=== PATIENT | female | born 1975 | race Caucasian/White ===

== ENCOUNTER → 2016-04-14 | Outpatient (CLI) | payer OTHER ==
--- NOTE | 2016-04-14 13:50 | DX ---
Chest, PA and Lateral History: Worsening cough Comparison: None Findings: There is a pectus excavatum deformity. Lungs are clear, without infiltrate or consolidation . Heart size is normal. There is no adenopathy or mass lesion. There is no pleural effusion. Bones ar e unremarkable for age. Impression: No pneumonia.
== END ==
LOC: FIMAGING 13:28
PROVIDERS: ATTEND Family Medicine
DX: R05 Cough (principal)

== ENCOUNTER → 2016-05-17 | Outpatient (CLI) | payer OTHER | LOC: BMCIMAGING 09:28 | PROVIDERS: ATTEND Internal Medicine Endocrinology, Diabetes & Metabolism | DX: E04.2 Nontoxic multinodular goiter (principal) | CPT/HCPCS: 76536-PO ==

== ENCOUNTER → 2017-12-07 | Outpatient (CLI) | payer OTHER | LOC: FIMAGING 08:49 | PROVIDERS: ATTEND Family Medicine | DX: Z12.31 Encounter for screening mammogram for malignant neoplasm of breast (principal) ==

== ENCOUNTER → 2018-01-08 | Outpatient (CLI) | payer OTHER | LOC: BMCIMAGING 08:51 | PROVIDERS: ATTEND Family Medicine | DX: N94.89 Other specified conditions associated with female genital organs and menstrual cycle (principal); R35.0 Frequency of micturition; R10.2 Pelvic and perineal pain; D25.1 Intramural leiomyoma of uterus ==

== ENCOUNTER → 2018-06-19 | Outpatient (CLI) | payer OTHER | LOC: BMCIMAGING 13:27 | PROVIDERS: ATTEND Internal Medicine Endocrinology, Diabetes & Metabolism | DX: E04.2 Nontoxic multinodular goiter (principal) | CPT/HCPCS: 76536-PO ==